=== PATIENT | female | born 1945 | race Caucasian/White ===

== ENCOUNTER → 2019-01-06 | Outpatient (CLI) | payer MEDICARE | END | disposition home or self-care (01) | LOC: OIH 10:18 | PROVIDERS: ATTEND Internal Medicine | DX: J45.909 Unspecified asthma, uncomplicated (principal) | CPT/HCPCS: 71046 ==

== ENCOUNTER → 2020-01-15 | Outpatient (CLI) | payer MEDICARE | END | disposition home or self-care (01) | LOC: OIH 09:39 | PROVIDERS: ATTEND Internal Medicine | DX: M41.85 Other forms of scoliosis, thoracolumbar region (principal) | CPT/HCPCS: 72100 ==

== ENCOUNTER → 2020-12-17 | Outpatient (CLI) | payer MEDICARE | END | disposition home or self-care (01) | LOC: OIH 15:52 | PROVIDERS: ATTEND Internal Medicine | DX: I10 Essential (primary) hypertension (principal); K44.9 Diaphragmatic hernia without obstruction or gangrene; M85.88 Other specified disorders of bone density and structure, other site | CPT/HCPCS: 71046 ==

== ENCOUNTER 2022-10-14 06:05 | Day surgery (SDC) | payer MEDICARE ==
[2022-10-13 14:33] VITALS: BP 152/70
[2022-10-13 14:42] LABS: BASOPHILS % (AUTO) 0.5 % (0.0-5.0); EOSINOPHILS % (AUTO) 1.2 % (0.0-8.0); HEMATOCRIT 34.8 % (36-48); MEAN CORPUSCULAR HGB CONC 31.6 g/dL (32.0-36.0); MEAN CORPUSCULAR VOLUME 88.5 fL (79-99); MONOCYTES % (AUTO) 7.2 % (3.0-13.0); NEUTROPHILS % (AUTO) 58.7 % (40.0-77.0); PLATELET COUNT (AUTO) 285 K/uL (130-400); RED BLOOD CELL COUNT(AUTO) 3.93 MIL/uL (4.00-5.50); RED CELL DISTRIBUTION WIDTH 13.7 % (11.0-15.5); WHITE BLOOD COUNT (AUTO) 7.8 K/uL (4.8-10.8)
[2022-10-13 14:47] LABS: APPEARANCE,URINE CLOUDY (CLEAR); BILIRUBIN,URINE NEGATIVE (NEGATIVE); COLOR,URINE YELLOW (YELLOW); GLUCOSE, URINE (UA) NEGATIVE (NEGATIVE); KETONES,URINE 5 mg/dL (NEGATIVE); LEUKOCYTE ESTERASE ,URINE 500 Leu/uL (NEGATIVE); NITRATE,URINE 2+ (NEGATIVE); OCCULT BLOOD,URINE NEGATIVE (NEGATIVE); PROTEIN,URINE 10 mg/dL (NEGATIVE); UROBILINOGEN,URINE 0.2 mg/dL (0.2-1.0)
[2022-10-13 14:50] LABS: CREATININE 0.6 mg/dL (0.5-1.5)
[2022-10-13 14:52] LABS: INR 0.94 (0.85-1.15); PROTHROMBIN TIME 10.3 SEC (9.6-11.6)
[2022-10-13 14:53] LABS: PARTIAL THROMBOPLASTIN TIME 24.8 SEC (26.3-35.5)
[2022-10-13 16:04] LABS: BACTERIA,URINE RARE /HPF (None Seen); MUCUS,URINE RARE LPF (None Seen); SQUAMOUS EPITHELIAL CELL,UR MANY /HPF (0-2); WBC,URINE >100 /HPF (0-1)
[2022-10-13 16:38] LABS: B-TYPE NATRIURETIC PEPTIDE 80 pg/mL (0-100)
[2022-10-14] VITALS (9 sets, daily range): BP systolic 115–160; BP diastolic 47–85
[~2022-10-14] VITALS: Ht 167.6 cm; Wt 82.6 kg
[~2022-10-14 06:05] MED LIST: AEC81 PO; ISOS30TA92 PO; LISI1TAB51 PO; SITA100T12 PO; VIT1CAPS47 PO
[2022-10-14] MEDS ORDERED: 0.9%NACL 1000ML 1,000 ML IV ONE (06:55)
[2022-10-14] MEDS ORDERED: NITROGLYCERIN 50MG VIAL ONE (07:17)
[2022-10-14] MEDS ORDERED: ISOVUE-370 50ML VIAL IV ONE (07:17)
[2022-10-14] MEDS ORDERED: VERAPAMIL HCL 2.5 MG/ML VIAL ONE (07:17)
[2022-10-14] MEDS ORDERED: NICARDIPINE 25MG INJ IV ONE (07:17)
[2022-10-14] MEDS ORDERED: HEPARIN 10,000 UNIT/10ML (1,000 UNIT/ML) VIAL ONE (07:18)
[2022-10-14] MEDS ORDERED: MIDAZOLAM HCL 1 MG/ML 2ML VIAL ONE (07:18)
[2022-10-14] MEDS ORDERED: LIDOCAINE HCL 400MG/20ML VIAL ONE (07:18)
[2022-10-14] MEDS ORDERED: FENTANYL CITRATE PF 50 MCG/1 ML 2ML VIAL ONE (07:26)
[2022-10-14] MEDS ORDERED: IOHEXOL 350 MG/ML 100ML INFUS..BTL IV ONE (08:08)
[2022-10-14] MEDS ORDERED: IOHEXOL-350 50ML VIAL IV ONE (08:08)
[2022-10-14] MEDS ORDERED: 0.9%NACL 1000ML 1,000 ML IV SCH (08:30)
[2022-10-14] MEDS ORDERED: DEXTROSE 50%-WATER 50 ML DISP.SYRIN IV PRN (08:30)
[2022-10-14] MEDS ORDERED: METOPROLOL TARTRATE 25 MG TAB ONE (09:27)
[2022-10-14] MEDS ORDERED: METOPROLOL TARTRATE 25 MG TAB PO SCH (09:30)
[2022-10-14] MEDS ORDERED: INSULIN HUMULIN R 100 UNIT/ML 3ML SQ SCH (11:30)
== END 2022-10-14 12:40 | disposition home or self-care (01) ==
LOC: DAH 06:05 → CLH 06:05
PROVIDERS: ATTEND Internal Medicine Interventional Cardiology
DX: R07.9 Chest pain, unspecified (principal); I25.10 Atherosclerotic heart disease of native coronary artery without angina pectoris; I10 Essential (primary) hypertension; E11.42 Type 2 diabetes mellitus with diabetic polyneuropathy; E86.0 Dehydration; E11.59 Type 2 diabetes mellitus with other circulatory complications; Z79.899 Other long term (current) drug therapy
CPT/HCPCS: 80048; 83880; 85025; 85610; 85730; 81001; 36415; 71045; 93005; 93458; 96360; 96361; 87077; 87088; 87186; 82948 ×2; C1769; C1894 ×2; Q9967 ×2; J3010; J3490 ×3; J7030; J1644 ×2; J2250; A4215; A4335; A4222; A4221; A4663; A4216; A4606; A4223 ×3; A4554; 99156; 99157